=== PATIENT | male | born 1975 | race Caucasian/White ===

== ENCOUNTER 2016-07-19 15:37 | Emergency (ER) | payer MEDICAID ==
--- NOTE | 2016-07-19 15:45 | EDPHY ---
H & P Stated Complaint: cp x 2 days/ seen at doc ekg done sent for further workup - Personal History Current Tetanus/Diphtheria Vaccine: Yes - Medical/Surgical History Hx Asthma: No Hx Chronic Respiratory Disease: No Hx Diabetes: No Hx Cardiac Disease: No Hx Renal Disease: No Hx Cirrhosis: No Hx Alcoholism: No Hx HIV/AIDS: No Hx Splenectomy or Spleen Trauma: No Other PMH: knee surgery/htn/gout - Social History Smoking Status: Former smoker Time Seen by Provider: 07/19/16 15:48 HPI/ROS: CHIEF COMPLAINT: left-sided chest pain x3 days HISTORY OF PRESENT ILLNESS: 41-year-old male generally healthy complaining of 3 days of left-sided dull chest ache with radiation to his left scapula and numbness to his left pinky finger. Not pleuritic. Not exertional. No nausea or vomiting. No diaphoresis. no neck pain. No headache. No jaw or neck pain. PRIMARY CARE PROVIDER:Dr. Elder Spine REVIEW OF SYSTEMS: A ten point review of systems was performed and is negative with the exception of the items mentioned in the HPI PAST MEDICAL & SURGICAL HISTORY: hypertension. Gout SOCIAL HISTORY:nonsmoker. No cocaine use. Works as a [employer] FAMILY HISTORY: father with PR at age 65 PHYSICAL EXAM (Prior to examination, patient consented to physical exam, hands were washed and my usual and customary physical exam procedures followed) 1) GENERAL: Well-developed, well-nourished, alert and oriented. Appears to be in no acute distress. 2) HEAD: Normocephalic, atraumatic 3) HEENT: Pupils equal, round, reactive to light bilaterally. Sclera anicteric. 4) NECK: Full range of motion, no bruit 5) LUNGS: Clear auscultation bilaterally, no wheezes, no rhonchi, no retractions. 6) HEART: Regular rate and rhythm, no murmur, no heave, no gallop. 7) ABDOMEN: No guarding, no rebound, no focal tenderness, no pulsatile mass, 8) MUSCULOSKELETAL: negative Homans no palpable cord. No peripheral edema or discoloration. 9) BACK: no visual or palpable abnormality. 10) SKIN: No rash, no petechiae. 11) Psychiatric: Patient is oriented X 3, there is no agitation. DIFFERENTIAL DIAGNOSIS: In no particular order, including but not limited to myocardial ischemia, pulmonary embolus, chest wall pain, pleural inflammation and pulmonary infectious causes. (Laura Ribeiro) Constitutional: Initial Vital Signs Temperature (C) 36.5 C 07/19/16 15:41 Heart Rate 87 07/19/16 15:41 Respiratory Rate 16 07/19/16 15:41 Blood Pressure 120/92 H 07/19/16 15:41 O2 Sat (%) 94 07/19/16 15:41 O2 Delivery Mode Room Air Allergies/Adverse Reactions: No Known Allergies Allergy (Unverified 09/02/15 09:14) Home Medications: Medication Instructions Recorded Allopurinol 07/19/16 Lisinopril 07/19/16 Medical Decision Making - Diagnostics Imaging Results: Imaging Impressions Chest X-Ray 07/19/16 15:50 Impression: Clear lungs. No explanation for left-sided pain. ED Course/Re-evaluation: 3:55 p.m.: Discussed case Dr. Galeano in the ER 4:38 p.m.: Re-evaluation. Discussed his imaging results and his diagnostic results. I think that pulmonary embolus, PR, aortic dissection, less than likely in this patient at this time. The patient was also seen exam by Dr. Mychal Galeano. Usual And customary cardiac precautions instructions provided. He feels comfortable being discharged. All questions and concerns addressed by myself. (Laura Ribeiro) Other Provider: PHYSICIAN DOCUMENTATION: The patient was evaluated and managed by the Physician Resource Manager and myself. I have reviewed the chart and agree with the findings and plan of care as documented. In addition, I examined the patient myself at 1605. History confirmed as consistent unremitting left-sided symptoms for the last 3 days. Recent travel to [facility]. Physical findings as follows: Lungs clear to auscultation, no murmur on exam. Speaks in full sentences. Plan for EKG, chest x-ray, troponin and D-dimer. Pretest probability for pulmonary embolism is low. I think that acute coronary syndrome would be unlikely with several days of constant symptoms but no acute ischemic changes on EKG and normal troponin. 12-lead EKG interpreted by me; official reading is in trace master. My interpretation is sinus rhythm, left atrial abnormality, borderline left axis deviation. No acute ischemic dynamic changes. I am the secondary supervising physician. (Mychal Galeano) - Data Points Laboratory Results: Laboratory Results 07/19/16 15:57 07/19/16 15:57 07/19/16 07/19/16 07/19/16 15:57 15:57 15:57 WBC 9.57 10^3/uL H 10^3/uL (3.80-9.50) RBC 4.71 10^6/uL 10^6/uL (4.40-6.38) Hgb 15.3 g/dL g/dL (13.7-17.5) Hct 43.9 % % (40.0-51.0) MCV 93.2 fL fL (81.5-99.8) MCH 32.5 pg pg (27.9-34.1) MCHC 34.9 g/dL g/dL (32.4-36.7) RDW 11.9 % % (11.5-15.2) Plt Count 135 10^3/uL L 10^3/uL (150-400) MPV 11.7 fL fL (8.7-11.7) Neut % (Auto) 71.2 % % (39.3-74.2) Lymph % (Auto) 18.2 % % (15.0-45.0) [place] % (Auto) 7.5 % % (4.5-13.0) Eos % (Auto) 2.1 % % (0.6-7.6) Baso % (Auto) 0.7 % % (0.3-1.7) Nucleat RBC Rel Count 0.0 % % (0.0-0.2) Absolute Neuts (auto) 6.81 10^3/uL H 10^3/uL (1.70-6.50) Absolute Lymphs (auto) 1.74 10^3/uL 10^3/uL (1.00-3.00) Absolute Monos (auto) 0.72 10^3/uL 10^3/uL (0.30-0.80) Absolute Eos (auto) 0.20 10^3/uL 10^3/uL (0.03-0.40) Absolute Basos (auto) 0.07 10^3/uL 10^3/uL (0.02-0.10) Absolute Nucleated RBC 0.00 10^3/uL 10^3/uL (0-0.01) Immature Gran % 0.3 % % (0.0-1.1) Immature Gran # 0.03 10^3/uL 10^3/uL (0.00-0.10) D-Dimer < 0.27 ug/mLFEU ug/mLFEU (0.00-0.50) Sodium 137 mEq/L mEq/L (134-144) Potassium 4.1 mEq/L mEq/L (3.5-5.2) Chloride 101 mEq/L mEq/L (97-110) Carbon Dioxide 26 mEq/l mEq/l (22-31) Anion Gap 10 mEq/L mEq/L (8-16) BUN 16 mg/dL mg/dL (7-23) Creatinine 1.0 mg/dL mg/dL (0.7-1.3) Estimated GFR > 60 Glucose 101 mg/dL H mg/dL (70-100) Calcium 9.5 mg/dL mg/dL (8.5-10.4) Troponin I < 0.012 ng/mL ng/mL (0-0.034) Medications Given: Discontinued Medications Aspirin (Aspirin) 324 mg PO EDNOW ONE Stop: 07/19/16 15:51 Last Admin: 07/19/16 16:11 Dose: 324 mg Departure - Departure Disposition: Home, Routine, Self-Care Clinical Impression: Chest pain Qualifiers: Chest pain type: unspecified Qualified Code(s): R07.9 - Chest pain, unspecified Condition: Good Instructions: Chest Pain (ED) Additional Instructions: Seek medical attention if you develop new or worsening chest pain, if you develop new or worsening shortness of breath, or any other symptoms that concern you. Referrals: Jerrod Walden, DO [Primary Care Provider] - 1-2 days without fail
[2016-07-19] MEDS ORDERED: ASPIRIN 81 MG CHEWABLE TAB PO ONE (15:50)
--- NOTE | 2016-07-19 15:55 | CPEKG ---
Heart Rate: 87 RR Interval: 690 P-R Interval: 172 QRSD Interval: 76 QT Interval: 360 QTC Interval: 433 P [place]: 35 QRS [place]: -23 T Wave [place]: 16 EKG Severity - BORDERLINE ECG - EKG Impression: SINUS RHYTHM EKG Impression: PROBABLE LEFT ATRIAL ABNORMALITY EKG Impression: BORDERLINE LEFT AXIS DEVIATION EKG Impression: BORDERLINE R WAVE PROGRESSION, ANTERIOR LEADS Electronically Signed By: Mychal Galeano 19-Jul-2016 16:33:22
[2016-07-19 16:03] LABS: % IMMATURE GRANULYOCYTES 0.3 % (0.0-1.1); ABSOLUTE IMMATURE GRANULOCYTES 0.03 10^3/uL (0.00-0.10); ADD DIFF? NO; ADD MORPH? NO; ADD SCAN? NO; ATYPICAL LYMPHOCYTE FLAG 0 (0-99); FRAGMENT RBC FLAG 0 (0-99); HEMATOCRIT 43.9 % (40.0-51.0); HEMOGLOBIN 15.3 g/dL (13.7-17.5); LEFT SHIFT FLG 0 (0-99); LIPEMIA HEMOLYSIS FLAG 90 (0-99); MEAN CELL HEMOGLOBIN 32.5 pg (27.9-34.1); MEAN CELL HEMOGLOBIN CONCENTR. 34.9 g/dL (32.4-36.7); MEAN CELL VOLUME 93.2 fL (81.5-99.8); MEAN PLATELET VOLUME 11.7 fL (8.7-11.7); PLATELET CLUMPS FLAG 0 (0-99); PLATELET COUNT 135 10^3/uL (150-400); RED BLOOD CELL COUNT 4.71 10^6/uL (4.40-6.38); RED CELL DISTRIBUTION WIDTH 11.9 % (11.5-15.2)
[2016-07-19 16:20] LABS: ANION GAP 10 mEq/L (8-16); CALCIUM 9.5 mg/dL (8.5-10.4); CARBON DIOXIDE 26 mEq/l (22-31); CHLORIDE 101 mEq/L (97-110); GLOMERULAR FILTRATION RATE > 60; GLUCOSE 101 mg/dL (70-100); POTASSIUM 4.1 mEq/L (3.5-5.2); SODIUM 137 mEq/L (134-144)
[2016-07-19 16:31] LABS: TROPONIN I < 0.012 ng/mL (0-0.034)
[2016-07-19 16:46] VITALS: BP 120/77; PULSE 80; RESP 14; TEMP 97.9; O2SAT 94
== END 2016-07-19 16:45 | disposition home or self-care (01) ==
DX: R07.9 Chest pain, unspecified (principal); I10 Essential (primary) hypertension; Z87.891 Personal history of nicotine dependence

== ENCOUNTER 2018-03-03 13:37 | Emergency (ER) | payer OTHER ==
[2018-03-03] MEDS ORDERED: NS 500 ML IV ONE (15:18)
[2018-03-03] MEDS ORDERED: fentaNYL 100 MCG/2 ML INJ IVP ONE (15:19)
[2018-03-03] MEDS ORDERED: ONDANSETRON 4 MG/2 ML VIAL IVP ONE (15:19)
--- NOTE | 2018-03-03 15:19 | EDPHY ---
H & P Time Seen by Provider: 03/03/18 15:11 HPI/ROS: CHIEF COMPLAINT: Abdominal pain HISTORY OF PRESENT ILLNESS: Patient is a 42-year-old male who presents emergency department ongoing lower abdominal pain. Patient states he has had bilateral lower pain for the past few weeks. It is slightly worsened over the last few days. The patient has a noted umbilical hernia and thought that this may be related. Patient denies any fevers or chills. No nausea or vomiting. No dysuria frequency. No hematuria. No diarrhea. Patient went to see his primary care physician Dr. Walden earlier today. He was noted to have left lower quadrant tenderness to palpation. He has subsequently sent to the emergency department for further evaluation. REVIEW OF SYSTEMS: 10 systems were reveiwed and are negative with the exception of the elements mentioned in the history of present illness. Past Medical/Surgical History: Includes hypertension, umbilical hernia, gout Past surgical history: Knee surgery Social history: The patient does not smoke Smoking Status: Former smoker Physical Exam: 36.8, 153/109, 106, 18, 95% on room air GENERAL: Well-appearing, in no acute distress, alert. HEENT: Eyes normal to inspection, normal pharynx, no signs of dehydration. NECK: Normal, supple. RESPIRATORY: Clear to auscultation bilaterally, no rales, rhonchi or wheezing. CVS: Regular rate and rhythm, no rubs, murmurs, or gallops. ABDOMEN: Soft, mild left lower quadrant tenderness to palpation with no rebound or guarding, nondistended, no organomegaly. BACK: Normal to inspection, no CVA tenderness. SKIN: Normal color, no rash, warm, dry. No pallor. EXTREMITIES: No pedal edema, no calf tenderness, no Homans sign or cords, no joint swelling. NEURO/PSYCH: Alert and oriented, normal mood and affect, normal motor sensory exam. Constitutional: Initial Vital Signs Temperature (C) 36.8 C 03/03/18 13:56 Heart Rate 106 H 03/03/18 13:56 Respiratory Rate 18 03/03/18 13:56 Blood Pressure 153/109 H 03/03/18 13:56 O2 Sat (%) 95 03/03/18 13:56 O2 Delivery Mode Room Air Allergies/Adverse Reactions: No Known Allergies Allergy (Verified 03/03/18 13:59) Home Medications: Medication Instructions Recorded Allopurinol 07/19/16 Lisinopril 07/19/16 Amlodipine Besylate 03/03/18 Medical Decision Making - Diagnostics Imaging Results: Imaging Impressions Abdomen CT 03/03/18 15:18 Impression: 1. Sigmoid diverticulosis, without diverticulitis or bowel obstruction. 2. No CT evidence of appendicitis, abscess, or bowel obstruction. 3. Hepatic steatosis, without hepatomegaly or masses. Findings and recommendations discussed with Emergency Department physician, Zoey Chance M.D., at 1620 hours, on March 03, 2018. Final report concurs with initial preliminary interpretation. ED Course/Re-evaluation: In the emergency department I discussed possible etiologies with the patient. I answered all his questions. IV was placed. Laboratory studies were obtained. CT imaging was ordered. Patient was given fentanyl 100 mcg IV for pain. Patient was given Zofran 4 mg IV for nausea. Patient's CBC was normal. UA negative. Patient was noted to have a low sodium of 131. Patient's total bilirubin was mildly elevated 1.7. AST and ALT were elevated at 120 05/30/2060 respectively. Alk-phos 72. Lipase was elevated at 306. CT of the abdomen pelvis: Please refer the dictated report. No acute disease noted. I rechecked the patient. He was sitting comfortable in the bed. He states his pain is improved. I discussed patient's low sodium. He is aware he needs close follow-up with his primary care physician for recheck. I answered all his questions. He will return with worsening symptoms. Differential Diagnosis: My differential includes but is not limited to diverticulitis, diverticulosis, oral abscess, perforation, small-bowel obstruction, UTI, pyelonephritis, kidney stone - Data Points Laboratory Results: Laboratory Results 03/03/18 15:05 03/03/18 15:05 03/03/18 03/03/18 03/03/18 15:25 15:05 15:05 WBC 8.48 10^3/uL 10^3/uL (3.80-9.50) RBC 5.03 10^6/uL 10^6/uL (4.40-6.38) Hgb 16.3 g/dL g/dL (13.7-17.5) Hct 46.7 % % (40.0-51.0) MCV 92.8 fL fL (81.5-99.8) MCH 32.4 pg pg (27.9-34.1) MCHC 34.9 g/dL g/dL (32.4-36.7) RDW 12.2 % % (11.5-15.2) Plt Count 144 10^3/uL L 10^3/uL (150-400) MPV 10.9 fL fL (8.7-11.7) Neut % (Auto) 84.3 % H % (39.3-74.2) Lymph % (Auto) 8.1 % L % (15.0-45.0) [place] % (Auto) 6.6 % % (4.5-13.0) Eos % (Auto) 0.4 % L % (0.6-7.6) Baso % (Auto) 0.4 % % (0.3-1.7) Nucleat RBC Rel Count 0.0 % % (0.0-0.2) Absolute Neuts (auto) 7.15 10^3/uL H 10^3/uL (1.70-6.50) Absolute Lymphs (auto) 0.69 10^3/uL L 10^3/uL (1.00-3.00) Absolute Monos (auto) 0.56 10^3/uL 10^3/uL (0.30-0.80) Absolute Eos (auto) 0.03 10^3/uL 10^3/uL (0.03-0.40) Absolute Basos (auto) 0.03 10^3/uL 10^3/uL (0.02-0.10) Absolute Nucleated RBC 0.00 10^3/uL 10^3/uL (0-0.01) Immature Gran % 0.2 % % (0.0-1.1) Immature Gran # 0.02 10^3/uL 10^3/uL (0.00-0.10) Sodium 131 mEq/L L mEq/L (135-145) Potassium 4.4 mEq/L mEq/L (3.3-5.0) Chloride 97 mEq/L mEq/L (97-110) Carbon Dioxide 24 mEq/l mEq/l (22-31) Anion Gap 10 mEq/L mEq/L (6-14) BUN 11 mg/dL mg/dL (7-23) Creatinine 0.7 mg/dL mg/dL (0.7-1.3) Estimated GFR > 60 Glucose 114 mg/dL H mg/dL (70-100) Calcium 9.7 mg/dL mg/dL (8.5-10.4) Total Bilirubin 1.7 mg/dL H mg/dL (0.1-1.4) Conjugated Bilirubin 0.5 mg/dL mg/dL (0.0-0.5) Unconjugated Bilirubin 1.2 mg/dL H mg/dL (0.0-1.1) AST 123 IU/L H IU/L (17-59) ALT 161 IU/L H IU/L (21-72) Alkaline Phosphatase 72 IU/L IU/L (38-126) Total Protein 7.5 g/dL g/dL (6.3-8.2) Albumin 4.7 g/dL g/dL (3.5-5.0) Lipase 306 IU/L H IU/L (23-300) Urine Color YELLOW Urine Appearance CLEAR Urine pH 7.0 (5.0-7.5) Ur Specific [place] 1.005 (1.002-1.030) Urine Protein NEGATIVE (NEGATIVE) Urine Ketones TRACE H (NEGATIVE) Urine Blood NEGATIVE (NEGATIVE) Urine Nitrate NEGATIVE (NEGATIVE) Urine Bilirubin NEGATIVE (NEGATIVE) Urine Urobilinogen NEGATIVE EU EU (0.2-1.0) Ur Leukocyte Esterase NEGATIVE (NEGATIVE) Urine RBC NONE SEEN /hpf /hpf (0-3) Urine WBC 1-3 /hpf /hpf (0-3) Ur Epithelial Cells NONE SEEN /lpf /lpf (NONE-1+) Urine Glucose NEGATIVE (NEGATIVE) Medications Given: Discontinued Medications Fentanyl (Sublimaze) 100 mcg IVP EDNOW ONE Stop: 03/03/18 15:20 Last Admin: 03/03/18 15:27 Dose: 100 mcg Sodium Chloride (Ns) 500 mls @ 0 mls/hr IV EDNOW ONE; Wide Open PRN Reason: Protocol Stop: 03/03/18 15:19 Last Admin: 03/03/18 15:27 Dose: 500 mls Ondansetron HCl (Zofran) 4 mg IVP EDNOW ONE Stop: 03/03/18 15:20 Last Admin: 03/03/18 15:27 Dose: 4 mg Departure - Departure Disposition: Home, Routine, Self-Care Clinical Impression: Abdominal pain Qualifiers: Abdominal location: left lower quadrant Qualified Code(s): R10.32 - Left lower quadrant pain Condition: Good Instructions: Acute Abdominal Pain (ED) Additional Instructions: You were noted to have a low sodium of 131. You need close follow-up with your primary care physician to have this rechecked. Slowly decrease your alcohol intake. Return to the emergency department with increased abdominal pain, vomiting, fever or any other concerns. Referrals: Jerrod Walden DO [Primary Care Provider] - 3-4 days, if not improved
[2018-03-03 15:27] LABS: PLATELET COUNT 144 10^3/uL (150-400)
[2018-03-03] MEDS ORDERED: IOPAMIDOL (ISOVUE-300) 100 ML BTL ONE ×3 (15:51→16:07)
[2018-03-03 17:01] VITALS: BP 135/88
== END 2018-03-03 17:08 | disposition home or self-care (01) ==
DX: R10.32 Left lower quadrant pain (principal); E86.9 Volume depletion, unspecified; I10 Essential (primary) hypertension; K57.30 Diverticulosis of large intestine without perforation or abscess without bleeding; K76.0 Fatty (change of) liver, not elsewhere classified
CPT/HCPCS: 96374; J2405; J3010; Q9967